=== PATIENT | female | born 1960 | race Caucasian/White ===

== ENCOUNTER → 2018-03-25 | Emergency (ER) | payer MEDICARE ==
[~2018-03-25] VITALS: Ht 165.1 cm; Wt 106.6 kg
[~2018-03-25] MED LIST: AMBIEN10 MG PO; PAXIL40 MG PO; ZOFRAN ODT4 MG PO; [UNRECOGNIZED DRUG - OTHER]
== END ==
LOC: ED 09:18
DX: K52.9 Noninfective gastroenteritis and colitis, unspecified (principal); Z91.09 Other allergy status, other than to drugs and biological substances
CPT/HCPCS: 80053; 81001; 83690; 85025; 96361; 96374; 96375; 99283; J2405; J3010; J7120